=== PATIENT | male | born 1975 | race Caucasian/White ===

== ENCOUNTER 2018-04-12 16:10 | Inpatient (IN) ==
[2018-04-12 17:25] LABS: BASOPHILS # (AUTO) 0.1 X10^3/uL (0.0-0.1); BASOPHILS % (AUTO) 0.6 % (0.2-1.0); EOSINOPHILS % (AUTO) 0.3 % (0.9-2.9); HEMATOCRIT 43.3 % (42.0-54.0); HEMOGLOBIN 14.8 g/dL (13.5-18.0); LYMPHOCYTES # (AUTO) 1.8 X10^3/uL (1.3-2.9); LYMPHOCYTES % (AUTO) 15.6 % (21.0-51.0); MEAN CORPUSCULAR HEMOGLOBIN 29.4 pg (27.0-34.0); MEAN CORPUSCULAR HGB CONC 34.2 g/dL (33.0-35.0); MEAN CORPUSCULAR VOLUME 85.9 fL (80.0-100.0); MEAN PLATELET VOLUME 8.3 fL (7.4-11.0); MONOCYTES # (AUTO) 0.8 x10^3/uL (0.3-0.8); MONOCYTES % (AUTO) 7.2 % (0.0-13.0); NEUTROPHILS # (AUTO) 8.8 x10^3/uL (2.2-4.8); NEUTROPHILS % (AUTO) 76.3 % (42.0-75.0); PLATELET COUNT 254 X10^3/uL (150.0-450.0); RED BLOOD COUNT 5.04 X10^6/uL (4.7-6.0); RED CELL DISTRIBUTION WIDTH 13.6 % (11.6-16.5); WHITE BLOOD COUNT 11.5 X10^3/uL (3.6-10.0)
[2018-04-12 17:38] LABS: ALANINE AMINOTRANSFERASE 45 Units/L (12-78); ALBUMIN 3.9 g/dL (3.4-5.0); ALKALINE PHOSPHATASE 86 Units/L (46-116); ASPARTATE AMINO TRANSFERASE 23 Units/L (15-37); BLOOD UREA NITROGEN 18 mg/dL (7-18); CALCIUM 9.1 mg/dL (8.5-10.1); CARBON DIOXIDE 26.4 mmol/L (21-32); CHLORIDE 99 mmol/L (98-107); CREATININE 1.29 mg/dL (0.70-1.30); SODIUM 134 mmol/L (136-145); eGFR NON BLACK RACES > 60 (>60)
[2018-04-12 17:39] LABS: LACTIC ACID 0.4 mmol/L (0.4-2.0)
--- NOTE | 2018-04-12 18:04 | DR.ALLERGY ---
HPI Time Seen Time Seen by Provider: 04/12/18 16:50 PCP Primary Care Physician: michele Complaint/Symptoms Chief Complaint Doctors Comments: SPIDER BITE, LEFT ELBOW ABSCESS TIMES 2 DAYS. Chief Complaint:: patient stated he has a spider bite to his left elbow for two days. [facility] at the [facility] where [facility] is a inmate and took tylenol 500 mg before coming to the er. Source History Provided: Patient Mode of Arrival Mode of Arrival: Ambulatory Timing Onset of Chief Complaint: 04/10/18 Came on: Suddenly Context Exposed to: Insect Developed: Other (comment) History of: None Location Location: Extremeties Severity SOB: None Swallowing: Moderate Rash: Moderate Pruritis: Moderate Modifying factors Improves: Nothing Associated signs and symptoms Associated signs and symptoms: None PMH PMH Past Medical History: No Past Surgical History: No Family History History of Family Medical Conditions: No Social History Does patient currently use any type of tobacco product: No Have you used tobacco products in the last 12 months: No Type of Tobacco Use: None Does any household member use tobacco: No Alcohol Use: None Do you use any recreational Drugs:: No Lives With: Family Lives Where: intermediate infectious screening In the last 2 months have you had wt loss of >10#?: NO Have you had fever, night sweats or hemotysis?: No Have you traveled outside the country in the last 6 months?: No Isolation: Standard ROS Review of Systems Constitutional: Fever Eyes: No Symptoms Reported ENTM: No Symptoms Reported Respiratoy: No Symptoms Reported Gastrointestinal/Abdominal: No Symptoms Reported Genitourinary: No Symptoms Reported Neurological: No Symptoms Reported Musculoskeletal: Elbow Integumentary: Wound (ANSCESS AND CELLULITIS LEFT ELBOW.) Hematologic/Lymphatic: No Symptoms Reported Endocrine: No Symptoms Reported Psychiatric: No Symptoms Reported All Other Systems: Reviewed and Negative PE Vitals Vital Signs: Temp Pulse Pulse Resp BP BP Pulse Ox 04/15/18 08:00 98 F 60 18 125/58 97 04/15/18 04:00 97.7 F 60 20 124/81 99 04/15/18 00:00 97.9 F 61 20 112/63 97 04/14/18 20:00 98.5 F 76 18 118/61 94 L 04/14/18 16:00 98.5 F 72 20 123/65 97 04/14/18 12:00 98.8 F 73 20 126/58 96 04/14/18 07:44 98.8 F 78 18 131/71 95 04/14/18 04:00 98.5 F 74 20 122/58 97 04/14/18 00:00 98.6 F 70 20 116/57 97 04/13/18 19:45 97.9 F 67 20 118/60 04/13/18 16:00 98.2 F 74 18 121/61 96 04/13/18 12:00 98.5 F 69 20 143/77 98 04/13/18 07:27 97.8 F 67 20 126/60 96 04/13/18 04:00 97.7 F 62 20 118/58 97 04/13/18 00:00 98.6 F 77 20 118/56 92 L 04/12/18 21:25 101.5 F H 87 20 135/63 97 04/12/18 20:25 100.3 F H 90 16 124/56 04/12/18 16:22 98.9 F 110 H 16 141/67 96 Constitutional Limitations: No Limitations General Appearance: Alert and In No Apparent Distress Head Head Exam: Normal Inspection and Atraumatic Eyes Eye exam: Normal Appearance ENT ENT Exam: Normal Exam Mouth Exam: Normal Inspection Throat Exam: Normal Inspection Neck Neck Exam: Normal Inspection Chest Chest Inspection: Normal Inspection Respiratory Respiratory Exam: Normal Lung Sounds Bilat Respiratory Exam: Bilateral: Clear to Auscultation Cardiovascular Cardiovascular Exam: Regular Rate and Normal Rhythm Abdominal Exam Abdominal Exam: Normal Inspection Extremities Extremities Exam: Tenderness (LEFT ELBOW SWOLLEN, RES AND TENDER. ROM DECREASE.) Back Back Exam: Normal Inspection Neurologic Neurological Exam: Alert Psychiatric Psychiatric Exam: Normal Affect Skin Skin Exam: Erythema Type of Lesion: Abscess (LEFT ELBOW WITH CELLILITIS.) Distribution: LUE Description: Tenderness and Swelling MDM Differential Diagnosis Differential diagnosis: negative Urticaria (ABSCESS WITH CELLULITIS LEFT ELBOW.) COURSE Treatment Treatment: SEE ODERS. Education/Counseling Education/Counseling: Patient Educated On: Diagnosis ROR Labs Reviewed Laboratory Results Reviewed?: Yes Result Diagrams: 04/15/18 04:47 04/15/18 04:47 Laboratory: 04/12/18 17:13 Blood Blood Culture - Final 04/12/18 17:07 Blood Blood Culture - Final 04/12/18 17:12 Elbow - Left Gram Stain - Final 04/12/18 17:12 Elbow - Left Wound Culture - Final Methicillin Resis Staph Aureus WBC 6.5 X10^3/uL (3.6-10.0) 04/15/18 04:47 RBC 4.34 X10^6/uL (4.7-6.0) L 04/15/18 04:47 Hgb 12.6 g/dL (13.5-18.0) L 04/15/18 04:47 Hct 37.8 % (42.0-54.0) L 04/15/18 04:47 MCV 87.0 fL (80.0-100.0) 04/15/18 04:47 MCH 29.0 pg (27.0-34.0) 04/15/18 04:47 MCHC 33.3 g/dL (33.0-35.0) 04/15/18 04:47 RDW 13.6 % (11.6-16.5) 04/15/18 04:47 Plt Count 249 X10^3/uL (150.0-450.0) 04/15/18 04:47 MPV 8.2 fL (7.4-11.0) 04/15/18 04:47 Neut % (Auto) 54.6 % (42.0-75.0) 04/15/18 04:47 Lymph % (Auto) 33.2 % (21.0-51.0) 04/15/18 04:47 [place] % (Auto) 8.2 % (0.0-13.0) 04/15/18 04:47 Eos % (Auto) 3.4 % (0.9-2.9) H 04/15/18 04:47 Baso % (Auto) 0.6 % (0.2-1.0) 04/15/18 04:47 Neut # (Auto) 3.5 x10^3/uL (2.2-4.8) 04/15/18 04:47 Lymph # (Auto) 2.2 X10^3/uL (1.3-2.9) 04/15/18 04:47 [place] # (Auto) 0.5 x10^3/uL (0.3-0.8) 04/15/18 04:47 Eos # (Auto) 0.2 x10^3/uL (0.0-0.2) 04/15/18 04:47 Baso # (Auto) 0.0 X10^3/uL (0.0-0.1) 04/15/18 04:47 Absolute Nucleated RBC 0.1 /100WBC 04/15/18 04:47 Sodium 140 mmol/L (136-145) 04/15/18 04:47 Corrected Sodium TNP 04/15/18 04:47 Potassium 4.3 mmol/L (3.5-5.1) 04/15/18 04:47 Chloride 107 mmol/L (98-107) 04/15/18 04:47 Carbon Dioxide 22.6 mmol/L (21-32) 04/15/18 04:47 BUN 7 mg/dL (7-18) 04/15/18 04:47 Creatinine 0.99 mg/dL (0.70-1.30) 04/15/18 04:47 Est GFR (MDRD) Af Amer > 60 (>60) 04/15/18 04:47 Est GFR (MDRD) Non-Af > 60 (>60) 04/15/18 04:47 Glucose 97 mg/dL (65-99) 04/15/18 04:47 Lactic Acid 0.4 mmol/L (0.4-2.0) 04/12/18 17:13 Calcium 7.8 mg/dL (8.5-10.1) L 04/15/18 04:47 Corrected Calcium 8.8 mg/dL (8.5-10.1) 04/15/18 04:47 Total Bilirubin 0.20 mg/dL (0.2-1.0) 04/15/18 04:47 AST 24 Units/L (15-37) 04/15/18 04:47 ALT 48 Units/L (12-78) 04/15/18 04:47 Alkaline Phosphatase 75 Units/L (46-116) 04/15/18 04:47 C-Reactive Protein 83.30 mg/L (0-3.0) H 04/12/18 17:13 Total Protein 6.4 g/dL (6.4-8.2) 04/15/18 04:47 Albumin 2.7 g/dL (3.4-5.0) L 04/15/18 04:47 Globulin 3.7 g/dL (2.5-4.5) 04/15/18 04:47 Albumin/Globulin Ratio 0.7 Ratio (1.1-2.1) L 04/15/18 04:47 Vancomycin Trough 3.2 ug/mL (15-20) L 04/14/18 08:02 Diagnosis Discharge Problem: Cellulitis of left elbow Fever Qualifiers: Fever type: unspecified Qualified Code(s): R50.9 - Fever, unspecified Instructions Instructions: Cellulitis, Adult Antibiotic Medicine, Adult, [id number] Doxycycline tablets or capsules MRSA Infection, Adult Sulfamethoxazole; Trimethoprim, [id number] tablets
[2018-04-12] MEDS ORDERED: NS 250 ML IV 250 ML IV ONE (19:04)
[2018-04-12] MEDS ORDERED: VANCOMYCIN HCL 1 GM VIAL ONE (19:04)
[2018-04-12] MEDS: VANCOMYCIN HCL 1 GM VIAL 1 G in D5W 250 ML IV 250 ML IV SCH ×2 (19:19→21:21)
[2018-04-12] MEDS: NS 1000 ML 1,000 ML IV SCH (19:20)
[2018-04-12] MEDS ORDERED: TORADOL 30 MG VIAL IVP PRN (19:28)
[2018-04-12] MEDS ORDERED: PHENERGAN TAB 25 MG PO PRN (19:50)
[2018-04-12] MEDS ORDERED: PHARMACY CONSULT - DOSE _____ XX SCH (20:00)
[2018-04-12] MEDS ORDERED: NS 100 ML IV + SPIKE MINIBAG* 100 ML IV ONE (21:30)
[2018-04-12] MEDS ORDERED: ZOSYN VIAL 3.375 GRAMS IV ONE (21:30)
[2018-04-12] MEDS: MOTRIN TAB 600 MG PO PRN (21:41)
[2018-04-12] MEDS: ZOSYN VIAL 3.375 GRAMS 3.375 G in NS 100 ML IV + SPIKE MINIBAG* 100 ML IV SCH (21:42)
[2018-04-12 22:16] VITALS: BMI 31.6
[2018-04-13 05:21] LABS: BASOPHILS % (AUTO) 0.3 % (0.2-1.0); EOSINOPHILS # (AUTO) 0.1 x10^3/uL (0.0-0.2); EOSINOPHILS % (AUTO) 1.7 % (0.9-2.9); HEMOGLOBIN 13.7 g/dL (13.5-18.0); LYMPHOCYTES % (AUTO) 23.8 % (21.0-51.0); MEAN CORPUSCULAR HGB CONC 33.4 g/dL (33.0-35.0); MEAN CORPUSCULAR VOLUME 86.6 fL (80.0-100.0); MEAN PLATELET VOLUME 8.5 fL (7.4-11.0); MONOCYTES # (AUTO) 0.9 x10^3/uL (0.3-0.8); MONOCYTES % (AUTO) 10.1 % (0.0-13.0); NEUTROPHILS # (AUTO) 5.4 x10^3/uL (2.2-4.8); NEUTROPHILS % (AUTO) 64.1 % (42.0-75.0); PLATELET COUNT 230 X10^3/uL (150.0-450.0); RED BLOOD COUNT 4.74 X10^6/uL (4.7-6.0); RED CELL DISTRIBUTION WIDTH 13.5 % (11.6-16.5); WHITE BLOOD COUNT 8.5 X10^3/uL (3.6-10.0)
[2018-04-13] MEDS: NS 1000 ML 1,000 ML IV SCH ×3 (05:27→20:14)
[2018-04-13] MEDS: ZOSYN VIAL 3.375 GRAMS 3.375 G in NS 100 ML IV + SPIKE MINIBAG* 100 ML IV SCH ×3 (05:27→21:40)
[2018-04-13 05:31] LABS: ALANINE AMINOTRANSFERASE 43 Units/L (12-78); ALBUMIN 3.2 g/dL (3.4-5.0); ALKALINE PHOSPHATASE 79 Units/L (46-116); ASPARTATE AMINO TRANSFERASE 26 Units/L (15-37); BLOOD UREA NITROGEN 14 mg/dL (7-18); CALCIUM 8.3 mg/dL (8.5-10.1); CARBON DIOXIDE 24.9 mmol/L (21-32); CHLORIDE 103 mmol/L (98-107); COR CA(FOR HYPOALB) 8.9 mg/dL (8.5-10.1); CREATININE 1.21 mg/dL (0.70-1.30); SODIUM 137 mmol/L (136-145); TOTAL PROTEIN 6.9 g/dL (6.4-8.2); eGFR NON BLACK RACES > 60 (>60)
[2018-04-13] MEDS: VANCOMYCIN HCL 1 GM VIAL 1 G in D5W 250 ML IV 250 ML IV SCH ×2 (08:24→21:40)
[2018-04-13] MEDS: MOTRIN TAB 600 MG PO PRN (12:30)
[2018-04-14] MEDS: NS 1000 ML 1,000 ML IV SCH ×4 (05:00→20:23)
[2018-04-14 05:13] LABS: BASOPHILS % (AUTO) 0.5 % (0.2-1.0); EOSINOPHILS # (AUTO) 0.2 x10^3/uL (0.0-0.2); EOSINOPHILS % (AUTO) 1.6 % (0.9-2.9); HEMATOCRIT 38.5 % (42.0-54.0); LYMPHOCYTES % (AUTO) 19.8 % (21.0-51.0); MEAN CORPUSCULAR HEMOGLOBIN 29.1 pg (27.0-34.0); MEAN CORPUSCULAR HGB CONC 33.6 g/dL (33.0-35.0); MEAN CORPUSCULAR VOLUME 86.6 fL (80.0-100.0); MEAN PLATELET VOLUME 8.4 fL (7.4-11.0); MONOCYTES # (AUTO) 0.8 x10^3/uL (0.3-0.8); MONOCYTES % (AUTO) 7.8 % (0.0-13.0); NEUTROPHILS # (AUTO) 7.3 x10^3/uL (2.2-4.8); NEUTROPHILS % (AUTO) 70.3 % (42.0-75.0); PLATELET COUNT 238 X10^3/uL (150.0-450.0); RED BLOOD COUNT 4.45 X10^6/uL (4.7-6.0); RED CELL DISTRIBUTION WIDTH 13.6 % (11.6-16.5); WHITE BLOOD COUNT 10.3 X10^3/uL (3.6-10.0)
[2018-04-14 05:31] LABS: ALANINE AMINOTRANSFERASE 55 Units/L (12-78); ALKALINE PHOSPHATASE 80 Units/L (46-116); ASPARTATE AMINO TRANSFERASE 32 Units/L (15-37); BLOOD UREA NITROGEN 10 mg/dL (7-18); CARBON DIOXIDE 22.8 mmol/L (21-32); CHLORIDE 106 mmol/L (98-107); COR CA(FOR HYPOALB) 8.8 mg/dL (8.5-10.1); CREATININE 1.15 mg/dL (0.70-1.30); SODIUM 138 mmol/L (136-145); TOTAL PROTEIN 6.7 g/dL (6.4-8.2); eGFR NON BLACK RACES > 60 (>60)
[2018-04-14] MEDS: ZOSYN VIAL 3.375 GRAMS 3.375 G in NS 100 ML IV + SPIKE MINIBAG* 100 ML IV SCH ×3 (05:41→21:19)
[2018-04-14 08:34] LABS: CREATININE 0.98 mg/dL (0.70-1.30); VANCOMYCIN,TROUGH 3.2 ug/mL (15-20)
[2018-04-14] MEDS: VANCOMYCIN HCL 1 GM VIAL 1 G in D5W 250 ML IV 250 ML IV SCH ×2 (09:00→20:23)
[2018-04-14] MEDS: MOTRIN TAB 600 MG PO PRN (20:22)
[2018-04-15] MEDS: NS 1000 ML 1,000 ML IV SCH (05:22)
[2018-04-15] MEDS: ZOSYN VIAL 3.375 GRAMS 3.375 G in NS 100 ML IV + SPIKE MINIBAG* 100 ML IV SCH (05:23)
[2018-04-15 05:26] LABS: BASOPHILS % (AUTO) 0.6 % (0.2-1.0); EOSINOPHILS # (AUTO) 0.2 x10^3/uL (0.0-0.2); EOSINOPHILS % (AUTO) 3.4 % (0.9-2.9); HEMATOCRIT 37.8 % (42.0-54.0); HEMOGLOBIN 12.6 g/dL (13.5-18.0); LYMPHOCYTES # (AUTO) 2.2 X10^3/uL (1.3-2.9); LYMPHOCYTES % (AUTO) 33.2 % (21.0-51.0); MEAN CORPUSCULAR HGB CONC 33.3 g/dL (33.0-35.0); MEAN PLATELET VOLUME 8.2 fL (7.4-11.0); MONOCYTES # (AUTO) 0.5 x10^3/uL (0.3-0.8); MONOCYTES % (AUTO) 8.2 % (0.0-13.0); NEUTROPHILS # (AUTO) 3.5 x10^3/uL (2.2-4.8); NEUTROPHILS % (AUTO) 54.6 % (42.0-75.0); PLATELET COUNT 249 X10^3/uL (150.0-450.0); RED BLOOD COUNT 4.34 X10^6/uL (4.7-6.0); RED CELL DISTRIBUTION WIDTH 13.6 % (11.6-16.5); WHITE BLOOD COUNT 6.5 X10^3/uL (3.6-10.0)
[2018-04-15 05:55] LABS: ALANINE AMINOTRANSFERASE 48 Units/L (12-78); ALBUMIN 2.7 g/dL (3.4-5.0); ALKALINE PHOSPHATASE 75 Units/L (46-116); ASPARTATE AMINO TRANSFERASE 24 Units/L (15-37); BLOOD UREA NITROGEN 7 mg/dL (7-18); CALCIUM 7.8 mg/dL (8.5-10.1); CARBON DIOXIDE 22.6 mmol/L (21-32); CHLORIDE 107 mmol/L (98-107); COR CA(FOR HYPOALB) 8.8 mg/dL (8.5-10.1); CREATININE 0.99 mg/dL (0.70-1.30); SODIUM 140 mmol/L (136-145); TOTAL PROTEIN 6.4 g/dL (6.4-8.2); eGFR NON BLACK RACES > 60 (>60)
[2018-04-15 08:40] VITALS: BP 125/58
[2018-04-15] MEDS: VANCOMYCIN HCL 1 GM VIAL 1 G in D5W 250 ML IV 250 ML IV SCH (08:40)
== END 2018-04-15 11:24 | disposition home or self-care (01) | DRG 918 ==
LOC: ER 16:13 → MED/SURG 19:50
PROVIDERS: ADMIT Obstetrics & Gynecology Obstetrics; ATTEND Obstetrics & Gynecology Obstetrics
DX: B95.62 Methicillin resistant Staphylococcus aureus infection as the cause of diseases classified elsewhere; Y92.148 Other place in prison as the place of occurrence of the external cause; T63.391A Toxic effect of venom of other spider, accidental (unintentional), initial encounter; L03.114 Cellulitis of left upper limb; R79.82 Elevated C-reactive protein (CRP)
CPT/HCPCS: 36415; 73070; 80053; 80202; 82565; 83605; 85025; 86140; 87040; 87070; 87075; 87077; 87186; 87205; 96365; 96367; 96374; 99283; 99284; A4222; J2543; J3370; J7030; J7050; J7060